=== PATIENT | male | born 1970 | race Caucasian/White ===

== ENCOUNTER → 2016-07-03 | Outpatient (CLI) | payer OTHER ==
[~2016-07-03] MED LIST: LEVO100T5 PO
[2016-07-03 11:47] LABS: AUTOMATED NEUTROPHIL # 4.1 TH/MM3 (1.8-7.7); BASOPHIL # 0.1 TH/MM3 (0-0.2); BASOPHIL % 0.9 % (0.0-2.0); EOSINOPHIL % 0.6 % (0.0-4.0); HEMATOCRIT 47.8 % (39.0-51.0); HEMO FLAGS DIFF FINAL; LYMPH % 28.5 % (9.0-44.0); LYMPHOCYTE # 1.8 TH/MM3 (1.0-4.8); MEAN CORPUSCULAR HEMOGLOBIN 33.4 PG (27.0-34.0); MEAN CORPUSCULAR HGB CONC 34.8 % (32.0-36.0); PLATELET COUNT 168 TH/MM3 (150-450); RED BLOOD COUNT 4.98 MIL/MM3 (4.50-5.90); RED CELL DISTRIBUTION WIDTH 12.6 % (11.6-17.2); WHITE BLOOD COUNT 6.4 TH/MM3 (4.0-11.0)
[2016-07-03 12:02] LABS: ALT (GPT) 54 U/L (12-78); ANION GAP 10 MEQ/L (5-15); AST (GOT) 44 U/L (15-37); BICARBONATE 24.6 MEQ/L (21.0-32.0); BLOOD UREA NITROGEN 11 MG/DL (7-18); CHLORIDE 107 MEQ/L (98-107); GLOMERULAR FILTRATION RATE 90 ML/MIN (>89); GLUCOSE,FASTING 78 MG/DL (74-99); POTASSIUM 3.9 MEQ/L (3.5-5.1); SODIUM (NA) 142 MEQ/L (136-145)
[2016-07-03 12:12] LABS: ALKALINE PHOSPHATASE 91 U/L (45-117); HDL CHOLESTEROL 99.8 MG/DL (40.0-60.0); LDL CHOLESTEROL 86 MG/DL (0-99); TOTAL BILIRUBIN ADULT 0.9 MG/DL (0.2-1.0)
== END ==
LOC: CLAB 11:25
PROVIDERS: ATTEND Nurse Practitioner Family
DX: E03.9 Hypothyroidism, unspecified (principal)
CPT/HCPCS: 36415; 80053; 80061; 84443; 85025

== ENCOUNTER 2016-07-08 20:55 | Emergency (ER) | payer OTHER ==
[2016-07-08 21:13] VITALS: BP 147/101; PULSE 126; RESP 18; TEMP 97.8; O2SAT 97
--- NOTE | 2016-07-08 21:28 | PD ---
HPI Chief Complaint: Alcohol/Drug Intoxication Time Seen by Provider: 21:24 Travel History International Travel<30 days: No Contact w/Intl Traveler<30days: No Traveled to known affect area: No History of Present Illness HPI 45-year-old male with PMH of hypothyroidism, sciatica presents to the ED under [place] act after being found intoxicated in public. Patient states that he was going to get a movie from the [employer], was on his way back when he encountered police. Patient endorses drinking "a lot" today. He states that he drinks every day. He denies physical complaints. Denies headache, fever, chills, chest pain, shortness of breath, abdominal pain, nausea, vomiting, dysuria. PCP Dr. Obrien. [facility] Past Medical History Diminished Hearing: No Thyroid Disease: Yes Social History Alcohol Use: No Tobacco Use: Yes (1 PPD) Substance Use: No Allergies-Medications (Allergen,Severity, Reaction): Coded Allergies: No Known Allergies (Verified , 06/13/16) Reported Meds & Prescriptions Reported Meds & Active Scripts Active Levothyroxine (Levothyroxine Sodium) 100 Mcg Tab 100 Mcg PO DAILY Review of Systems Except as stated in HPI: all other systems reviewed are Neg Physical Exam Exam Limitations: Intoxication Narrative GENERAL: Well-nourished, well-developed alert white male in no acute distress.. SKIN: Warm and dry. HEAD: Normocephalic. EYES: No scleral icterus. No injection or drainage. PERRLA. EOMI. NECK: Supple, trachea midline. No JVD or lymphadenopathy. CARDIOVASCULAR: Regular rate and rhythm without murmurs, gallops, or rubs. 2+ DP and radial pulses bilaterally. RESPIRATORY: Breath sounds clear and equal bilaterally. No accessory muscle use. GASTROINTESTINAL: Abdomen soft, non-tender, nondistended. Active bowel sounds. MUSCULOSKELETAL: No cyanosis, or edema. Patient is observed to walk with a normal gait. BACK: Nontender without obvious deformity. No CVA tenderness. Data Data Last Documented VS Vital Signs Date Time Temp Pulse Resp B/P Pulse Ox O2 Delivery O2 Flow Rate FiO2 07/08/16 21:13 97.8 126 18 147/101 97 Orders MDM Medical Decision Making Medical Screen Exam Complete: Yes Emergency Medical Condition: Yes Differential Diagnosis Acute alcohol intoxication versus alcohol dependence versus chronic alcoholism versus alcohol abuse versus other Narrative Course 45-year-old male with PMH of hypothyroidism, sciatica presents to the ED under [place] after being found intoxicated in public. Patient states that he was going to get a movie from the [employer], was on his way back when he encountered police. Patient endorses drinking "a lot" today. He states that he drinks every day. He denies physical complaints. Vitals reviewed. Patient is tachycardic and hypertensive on presentation to triage. Vitals improved in the exam room. On physical exam the patient is alert, active, cooperative. Chest CTAB, abdomen benign. I spoke to both his girlfriend and a sober friend by phone. The girlfriend states that she will be with the patient throughout the night. They are arranging for someone to come and pick him up. Patient is counseled to seek outpatient treatment for his alcohol dependence. He'll be discharged home once his ride arrives. Diagnosis Primary Impression: Acute alcohol intoxication Qualified Code: F10.120 - Acute alcohol intoxication, uncomplicated Additional Impression: Alcohol abuse Referrals: [facility] (Out patient) Patient Instructions: Abuse of Alcohol (ED), General Instructions Additional Instructions: Seek outpatient care for your chronic alcohol abuse. Return to the ED for any urgent or emergent medical condition. Disposition: 01 DISCHARGE HOME Condition: Stable Rakel Brice Jul 08, 2016 21:28
[2016-10-26] MEDS ORDERED: LEVO100T5 PO (14:03)
== END 2016-07-08 22:45 | disposition home or self-care (01) ==
LOC: NEPA 20:55
DX: F10.220 Alcohol dependence with intoxication, uncomplicated (principal); E03.9 Hypothyroidism, unspecified; R00.0 Tachycardia, unspecified; I10 Essential (primary) hypertension; F17.210 Nicotine dependence, cigarettes, uncomplicated; Y90.9 Presence of alcohol in blood, level not specified
CPT/HCPCS: 99284